=== PATIENT | female | born 1980 | race Caucasian/White ===

== ENCOUNTER 2021-01-27 14:08 | Emergency (ER) | payer OTHER ==
[~2021-01-27 14:08] MED LIST: CLARITIN10 M2 PO; COLACE 100MG C100 MG PO; MACROBID 100 M100 MG PO; PROVENTIL HFA6.7 GM INH; SUBUTEX 8 MG TAB8 MG SL; TAMIFLU75 MG PO; TESSALON PERLE100 MG PO; TYLENOL 500 MG500 MG PO; TYLENOL PM EX-1 EACH PO; ZITHROMAX250 MG PO
[2021-01-27] MEDS ORDERED: CLEOCIN HCL300 MG PO (14:46)
[2021-01-27] MEDS ORDERED: TYLENOL325 MG PO (14:46)
== END 2021-01-27 15:10 | disposition home or self-care (01) ==
LOC: ER1 14:08
DX: K04.7 Periapical abscess without sinus (principal); F17.200 Nicotine dependence, unspecified, uncomplicated; Z88.0 Allergy status to penicillin
CPT/HCPCS: 96372; 99283

== ENCOUNTER 2021-03-31 18:35 | Emergency (ER) | payer OTHER ==
[~2021-03-31 18:35] MED LIST changes: +CLEOCIN HCL300 MG PO; +TYLENOL325 MG PO
[2021-03-31] MEDS ORDERED: BACTRIM DS TAB1 EACH PO (20:08)
[2021-03-31] MEDS ORDERED: IBUPROFEN600 MG PO (20:08)
[2021-03-31 20:20] LABS: HEMOGLOBIN 13.1 gm/dl (12.3-15.3); RED BLOOD COUNT 4.27 M/UL (4.00-5.10); WHITE BLOOD COUNT 10.5 K/UL (4.5-11.0)
[2021-03-31 20:45] LABS: BUN/CREATININE RATIO 13 (0-10)
== END 2021-03-31 20:51 | disposition home or self-care (01) ==
LOC: ER1 18:35
PROVIDERS: Nurse Practitioner
DX: L03.012 Cellulitis of left finger (principal); Z88.8 Allergy status to other drugs, medicaments and biological substances; Z88.0 Allergy status to penicillin; F17.200 Nicotine dependence, unspecified, uncomplicated
CPT/HCPCS: 73140; 80053; 85025; 87070; 87205; 99283